=== PATIENT | female | born 1980 | race Two or more races ===

== ENCOUNTER 2017-01-15 17:44 | Emergency (ER) | payer OTHER ==
[~2017-01-15] VITALS: Ht 172.7 cm; Wt 58.6 kg
[2017-01-15 18:38] LABS: HEMATOCRIT 40.8 % (36.0-46.0); MCH 30.2 PG (29.0-34.0); MCHC 33.6 G/DL (30.0-36.0); MCV 89.9 FL (83-99); MEAN PLAT.VOLUME 10.2 uM^3 (9.5-12.4); PLATELET COUNT 210 K/uL (156-360); RBC DIS.WIDTH-CV 11.9 % (11.8-14.6); RBC DIS.WIDTH-SD 39.3 % (39-53); RED BLOOD COUNT 4.54 M/uL (3.80-5.20); WHITE BLOOD COUNT 6.6 K/uL (4.1-10.2)
[2017-01-15 18:52] LABS: CHLORIDE 104 mEq/L (99-109); POTASSIUM 4.2 mEq/L (3.7-5.4); SODIUM 140 mEq/L (136-147)
[2017-01-15 18:54] LABS: GLUCOSE 74 mg/dL (70-99)
[2017-01-15 18:55] LABS: ANION GAP 10 MEQ/L (2-14)
[2017-01-15 18:57] LABS: GFR ESTIMATE (CALCULATED) > 59 mL/min/
[2017-01-15 18:58] LABS: UREA NITROGEN (BUN) 26 mg/dL (9-23)
[2017-01-15 18:59] LABS: TROP-I INTERPRETATION NEGATIVE; TROPONIN-I < 0.01 ng/mL (0.0-0.30)
[2017-01-15 20:45] LABS: D-DIMER ELISA < 150.00 ng/mLDDU (<230)
[2017-01-15 21:57] LABS: TROP-I INTERPRETATION NEGATIVE; TROPONIN-I < 0.01 ng/mL (0.0-0.30)
[2017-01-15 22:13] VITALS: BP 105/69
== END 2017-01-15 22:14 | disposition home or self-care (01) ==
LOC: EME 17:44
PROVIDERS: Emergency Medicine
DX: R07.89 Other chest pain (principal)
CPT/HCPCS: 71020; 80048; 84484; 85027; 85379; 93005; 99281; 99284